=== PATIENT | male | born 1985 | race Hispanic/Latino ===

== ENCOUNTER 2018-03-06 15:03 | Emergency (ER) | payer BC ==
[2018-03-06 15:23] VITALS: PULSE 78; RESP 18; TEMP 97.7; O2SAT 100
[2018-03-06] MEDS ORDERED: Bacitracin 500 Units/gm Oint Foilpak UD ONE (16:17)
--- NOTE | 2018-03-06 16:21 | ED PDOC ---
Upper Extremity Pain/Injury Time Seen by Provider: 03/06/18 15:24 Chief Complaint (Nursing): Abnormal Skin Integrity Chief Complaint (Provider): Finger Laceration History Per: Patient History/Exam Limitations: no limitations Onset/Duration Of Symptoms: Mins (prior to arrival) Current Symptoms Are (Timing): Still Present Additional Complaint(s): 32 year old male presents to the ED for evaluation of a finger injury. Patient states that prior to arrival, he was attempting to open an aluminum can and sustained a laceration to his left thumb. Otherwise, denies numbness or tingling. Tetanus not up to date PMD: [place] Past Medical History Reviewed: Historical Data, Nursing Documentation, Vital Signs Vital Signs: Last Vital Signs Temp 97.7 F 03/06/18 15:21 Pulse 78 03/06/18 15:21 Resp 18 03/06/18 15:21 BP Pulse Ox 100 03/06/18 15:21 - Medical History PMH: No Chronic Diseases - Surgical History Surgical History: No Surg Hx - Family History Family History: States: Unknown Family Hx - Social History Current smoker - smoking cessation education provided: No Alcohol: Social Drugs: Denies - Immunization History Hx Tetanus Toxoid Vaccination: No - Allergies Allergies/Adverse Reactions: Allergies Allergy/AdvReac Type Severity Reaction Status Date / Time amoxicillin Allergy RASH Verified 03/06/18 15:31 Review of Systems ROS Statement: Except As Marked, All Systems Reviewed And Found Negative Skin: Positive for: Other (laceration to left thumb) Neurological: Negative for: Numbness (or tingling) Physical Exam - Reviewed Nursing Documentation Reviewed: Yes Vital Signs Reviewed: Yes - Physical Exam Appears: Positive for: No Acute Distress Skin: Positive for: Normal Color, Warm, Dry Extremity: Positive for: Normal ROM (actively of left thumb), Other (Left dorsal surface of left thumb on IP joint there is a 1cm superficial linear laceration) - ECG O2 Sat by Pulse Oximetry: 100 (RA) Pulse Ox Interpretation: Normal Medical Decision Making Medical Decision Making: Time: 1500 Initial Impression: finger laceration Initial Plan: --Tetanus booster --Patient was given the option to have local anesthetics used for suturing, or just have the one suture placed without it, and he chose to proceed without the lidocaine. Wound was sutured, and patient tolerated procedure well with no complications. See procedure note. He was educated on further wound care and advised to follow up with any complications or in 10-14 days for suture removal. All questions were answered at this time. Scribe Attestation: Documented by Emelina Murillo acting as a scribe for Derek Sanders PA-C. Provider Scribe Attestation: All medical record entries made by the Scribe were at my direction and personally dictated by me. I have reviewed the chart and agree that the record accurately reflects my personal performance of the history, physical exam, medical decision making, and the department course for this patient. I have also personally directed, reviewed, and agree with the discharge instructions and disposition. Procedures - Time-Out Type of Procedure: suture Site of Procedure: left thumb Correct Patient: Yes Correct Procedure: Yes Correct Site Marked: Yes PA/Tech: Derek Sanders PA-C - Laceration/Wound Repair Left Thumb Wound's Depth, Shape: superficial Wound Explored: no foreign body removed Irrigated w/ Saline (ccs): 50 Betadine Prep?: Yes Wound Repaired With: Sutures Suture Size/Type: 5:0 (ethilon) Number of Sutures: 1 Wound Complexity: Simple Sterile Dressing Applied?: Yes Disposition - Clinical Impression Clinical Impression: Thumb laceration - Patient ED Disposition Is Patient to be Admitted: No - Disposition Referrals: [facility] [Outside] Disposition: Routine/Home Disposition Time: 16:30 Condition: STABLE Additional Instructions: SUTURE REMOVAL IN 10-14 DAYS JAMAL ZAVALETA, thank you for letting us take care of you today. Your provider was Jeni Monreal MD and you were treated for LT THUMB INJURY. The emergency medical care you received today was directed at your acute symptoms. If you were prescribed any medication, please fill it and take as directed. It may take several days for your symptoms to resolve. Return to the Emergency Department if your symptoms worsen, do not improve, or if you have any other problems. Please contact your doctor or call one of the physicians/clinics you have been referred to that are listed on the Patient Visit Information form that is included in your discharge packet. Bring any paperwork you were given at discharge with you along with any medications you are taking to your follow up visit. Our treatment cannot replace ongoing medical care by a primary care provider outside of the emergency department. Thank you for allowing the [facility] team to be part of your care today. If you had an X-Ray or CT scan: A Radiologist will review the ED reading if any change in treatment is needed we will contact you. If you had a blood, urine, or wound culture: It will take several days for the results, if any change in treatment is needed we will contact you. If you had an STI test: It will take 48 hours for the results. Please call after 1 week if you have not heard back. Instructions: Laceration Repair With Stitches (DC) Forms: [employer] (Occitan) Print Language: JAPANESE
[2018-03-06] MEDS ORDERED: Tdap Vaccine 0.5 ml Vial (10-64 yrs) IM ONE ×2 (16:29→16:37)
== END 2018-03-06 16:48 | disposition home or self-care (01) ==
LOC: H.ER 15:03
DX: S61.012A Laceration without foreign body of left thumb without damage to nail, initial encounter (principal); W26.8XXA Contact with other sharp object(s), not elsewhere classified, initial encounter; Y92.89 Other specified places as the place of occurrence of the external cause